=== PATIENT | female | born 1945 | race Caucasian/White ===

== ENCOUNTER 2019-04-14 16:21 | Inpatient (IN) ==
[2019-04-14 17:31] LABS: Basophils % 0.4 % (0.0-0.8); Eosinophils # 0.1 10*3/uL (0.0-0.87); Eosinophils % 1.2 % (0.00-10.9); Hematocrit 38.4 VOL% (35.7-47.0); Hemoglobin 13.2 GM/DL (12.0-16.0); Immature Granulocytes % 0.9 %; Immature Granulocytes Absolute 0.06 #; Lymphocytes # 0.6 10*3/uL (1.4-4.0); Lymphocytes % 9.1 % (21.3-54.2); Mean Corpuscular HGB Conc 34.4 GM/DL (32-36); Mean Corpuscular Volume 81.5 FL (87-102); Neutrophils % 82.4 % (38.7-73.9); Platelet Count 126 T/CUMM (130-400); Red Blood Count 4.71 MC/CUMM (3.8-5.5); Red Cell Distribution Width 15.3 % (9.3-17.3); White Blood Count 6.7 T/CUMM (4-12)
[2019-04-14] MEDS ORDERED: SODIUM CHLORIDE 0.9% 500 ML IV STA (17:35)
[2019-04-14 17:45] LABS: Bilirubin,Total 0.4 MG/DL (0.2-1.0); Calcium 9.1 MG/DL (8.5-10.1); Osmolality,Calculated 241.5 MOS/KG (273-304); Total Protein 7.3 G/DL (6.4-8.3)
[2019-04-14 20:06] LABS: Apearance,Urine CLEAR (Clear); Bilirubin,Urine Negative (Negative); Blood, Urine Negative (Negative); Glucose,Urine (UA) Negative (Negative); Ketones,Urine Negative (Negative); Nitrite,Urine Negative (Negative); Protein,Urine Negative; RBC,Urine 2 /HPF (0-4); Urine Color Straw (Yellow); Urine Specific Gravity 1.021 (1.001-1.035); Urine Urobilinogen < 2.0 EU/DL (0.2-1.0)
[2019-04-14] MEDS ORDERED: ONDANSETRON 4 MG/2 ML VIAL IV PRN (20:09)
[2019-04-14] MEDS ORDERED: DEXTROSE 50% 25 GM/50 ML VIAL IV PRN ×2 (20:09)
[2019-04-14] MEDS ORDERED: ACETAMINOPHEN 325 MG TABLET PO PRN (20:09)
[2019-04-14] MEDS ORDERED: GLUCAGON 1 MG VIAL IM PRN ×2 (20:09)
[2019-04-14] MEDS ORDERED: ALBUTEROL/IPRATROPIUM 3 ML NEB RESP TX PRN (20:50)
[2019-04-14] MEDS: SODIUM CHLORIDE 0.9% 1,000 ML IV SCH (23:35)
[2019-04-14] MEDS: INSULIN LISPRO 100 UNIT/ML SUBCUT SCH (23:37)
[2019-04-14] MEDS: METOPROLOL SUCCINATE XL 25 MG TABLET PO SCH (23:37)
[2019-04-14] MEDS: ATORVASTATIN 10 MG TABLET PO SCH (23:37)
[2019-04-15 00:05] LABS: Osmolality,Calculated 245.1 MOS/KG (273-304)
[2019-04-15 04:55] LABS: Basophils % 0.4 % (0.0-0.8); Eosinophils # 0.1 10*3/uL (0.0-0.87); Eosinophils % 1.5 % (0.00-10.9); Hematocrit 33.7 VOL% (35.7-47.0); Hemoglobin 11.6 GM/DL (12.0-16.0); Immature Granulocytes % 0.9 %; Immature Granulocytes Absolute 0.05 #; Lymphocytes # 0.6 10*3/uL (1.4-4.0); Lymphocytes % 11.3 % (21.3-54.2); Mean Corpuscular HGB Conc 34.4 GM/DL (32-36); Mean Corpuscular Volume 80.8 FL (87-102); Mean Platelet Volume 9.3 FL (9.6-12.0); Monocytes % 7.4 % (1.7-12.7); Neutrophils % 78.5 % (38.7-73.9); Platelet Count 113 T/CUMM (130-400); Red Blood Count 4.17 MC/CUMM (3.8-5.5); Red Cell Distribution Width 15.3 % (9.3-17.3); White Blood Count 5.4 T/CUMM (4-12)
[2019-04-15 05:16] LABS: Calcium 8.8 MG/DL (8.5-10.1); Osmolality,Calculated 248.6 MOS/KG (273-304); Risk Ratio 1.7
[2019-04-15] MEDS: LEVOTHYROXINE 112 MCG TABLET PO SCH (05:52)
[2019-04-15] MEDS: SODIUM CHLORIDE 0.9% 1,000 ML IV SCH ×2 (07:10→20:04)
[2019-04-15] MEDS ORDERED: MAGNESIUM SULF RIDER 2 GM in PREMIX 1 EACH IV ONE (07:52)
[2019-04-15] MEDS: INSULIN LISPRO 100 UNIT/ML SUBCUT SCH ×4 (09:18→20:37)
[2019-04-15] MEDS: MULTIVITAMIN (CENTRUM) TABLET PO SCH (10:05)
[2019-04-15] MEDS: lisinopriL 5 MG TABLET PO SCH (10:06)
[2019-04-15] MEDS: CYANOCOBALAMIN 500 MCG TABLET PO SCH (10:06)
[2019-04-15] MEDS: DULoxetine 30 MG CAPSULE PO SCH (10:06)
[2019-04-15] MEDS: PANTOPRAZOLE 40 MG TABLET PO SCH (10:06)
[2019-04-15] MEDS: METOPROLOL SUCCINATE XL 25 MG TABLET PO SCH ×2 (10:06→20:02)
[2019-04-15] MEDS: CHOLECALCIFEROL 400 UNIT TABLET PO SCH (10:07)
[2019-04-15] MEDS: ASCORBIC ACID 500 MG TABLET PO SCH (10:07)
[2019-04-15] MEDS: ATORVASTATIN 10 MG TABLET PO SCH (20:02)
[2019-04-16 05:55] LABS: Basophils % 0.3 % (0.0-0.8); Eosinophils # 0.1 10*3/uL (0.0-0.87); Eosinophils % 1.6 % (0.00-10.9); Hematocrit 32.4 VOL% (35.7-47.0); Immature Granulocytes Absolute 0.06 #; Lymphocytes # 0.6 10*3/uL (1.4-4.0); Mean Corpuscular Volume 80.8 FL (87-102); Mean Platelet Volume 9.5 FL (9.6-12.0); Monocytes % 7.6 % (1.7-12.7); Neutrophils % 80.5 % (38.7-73.9); Platelet Count 112 T/CUMM (130-400); Red Blood Count 4.01 MC/CUMM (3.8-5.5); Red Cell Distribution Width 15.3 % (9.3-17.3); White Blood Count 6.1 T/CUMM (4-12)
[2019-04-16] MEDS: LEVOTHYROXINE 112 MCG TABLET PO SCH (06:12)
[2019-04-16 06:20] LABS: Albumin 3.4 G/DL (3.4-5.0); Calcium 8.4 MG/DL (8.5-10.1); Osmolality,Calculated 246.8 MOS/KG (273-304); Total Protein 6.5 G/DL (6.4-8.3)
[2019-04-16] MEDS: ASCORBIC ACID 500 MG TABLET PO SCH (09:14)
[2019-04-16] MEDS: PANTOPRAZOLE 40 MG TABLET PO SCH (09:14)
[2019-04-16] MEDS: CYANOCOBALAMIN 500 MCG TABLET PO SCH (09:15)
[2019-04-16] MEDS: DULoxetine 30 MG CAPSULE PO SCH (09:15)
[2019-04-16] MEDS: MULTIVITAMIN (CENTRUM) TABLET PO SCH (09:15)
[2019-04-16] MEDS: CHOLECALCIFEROL 400 UNIT TABLET PO SCH (09:16)
[2019-04-16] MEDS: METOPROLOL SUCCINATE XL 25 MG TABLET PO SCH (09:16)
[2019-04-16] MEDS: lisinopriL 5 MG TABLET PO SCH (09:16)
[2019-04-16] MEDS: SODIUM CHLORIDE 0.9% 1,000 ML IV SCH (09:18)
[2019-04-16] MEDS: INSULIN LISPRO 100 UNIT/ML SUBCUT SCH (09:19)
[2019-04-16 09:52] VITALS: BP 130/78
== END 2019-04-16 11:49 | disposition hospice, home (50) | DRG 180 ==
LOC: N.ED 16:21 → N.EDINP 20:09 → N.4E 22:26
PROVIDERS: ADMIT Internal Medicine; ATTEND Internal Medicine